=== PATIENT | female | born 2000 | race African-American/Black ===

== ENCOUNTER 2025-04-08 03:57 | Observation (INO) | payer MEDICAID ==
[~2025-04-08] VITALS: Ht 172.7 cm; Wt 59.0 kg
[2025-04-08] MEDS ORDERED: BETAMETHASONE ACET (30mg/5ml) 5ml Vial 6mg/ml IM ONE (04:30)
[2025-04-08] MEDS: TERBUTALINE SULFATE 1 MG/ML 1ML VIAL SC SCH (04:32)
[2025-04-08] MEDS: LACTATED RINGER'S 1,000 ML IV ONE (04:36)
[2025-04-08 05:02] LABS: Amphetamine Screen, Urine Neg (NEGATIVE); Barbiturate Scree,Urine Neg (NEGATIVE); Benzodiazephine Screen, Urine Neg (NEGATIVE); Cannabinoid Screen, Urine Neg (NEGATIVE); Cocaine Screen, Urine Neg (NEGATIVE); Opiate Scree,Urine Neg (NEGATIVE); Phencyclidine Screen, Urine Neg (NEGATIVE)
[2025-04-08 05:10] LABS: Urine Bacteria FEW /hpf (None Seen); Urine Blood Negative /uL (Negative); Urine Clarity Clear (Clear); Urine Color Colorless (Yellow); Urine Protein, UAD Negative (Negative); Urine Specific Gravity 1.007 (1.001-1.035); Urine Squamous Epithelial Cell FEW /hpf (<5); Urine Urobilinogen Normal (Negative); Urine WBC 8 /HPF (0-5)
[2025-04-08] MEDS ORDERED: PREN-96 PO (05:26)
--- NOTE | 2025-04-08 07:55 | DVHDS2 ---
Discharge Summary Date of Admission Date of Discharge: Apr 08, 2025 Admitting Diagnosis contractions Wounds: none Labs/Diagnostic Data: Laboratory Results Test 04/08/25 04:31 Urine Color Colorless (Yellow) Urine Clarity Clear (Clear) Urine pH 7.0 (5.0-9.0) Urine Specific [place] 1.007 (1.001-1.035) Urine Protein Negative (Negative) Urine Ketones Negative (Negative) Urine Blood Negative /uL (Negative) Urine Nitrite Negative (Negative) Urine Bilirubin Negative (Negative) Urine Urobilinogen Normal mg/dL (Negative) Urine Leukocyte Esterase Negative /uL (Negative) Urine RBC 7 /hpf (0 - 4) Urine Microscopic WBC 8 /HPF (0-5) Urine Squamous Epithelial Cells Few /hpf (<5) Urine Bacteria Few /hpf (None Seen) Urine Glucose Normal mg/dL (Normal) Urine Opiates Screen Neg (NEGATIVE) Urine Fentanyl Screen Neg (NEGATIVE) Urine Barbiturates Screen Neg (NEGATIVE) Urine Phencyclidine Screen Neg (NEGATIVE) Urine Amphetamines Screen Neg (NEGATIVE) Urine Benzodiazepines Screen Neg (NEGATIVE) Urine Cocaine Screen Neg (NEGATIVE) Urine Cannabinoids Screen Neg (NEGATIVE) Brief Hx & Hospital Course: 29 weeks contractions Dx uti contractions no labor Condition at Discharge: Good Final Diagnosis/Problems List UTI contractions Discharge Disposition: Home Discharge Instruct/Medications Diet: Regular Activity: Light activity (pelvic rest labor precautions , kick counts) Follow Up/Referral: Please keep all previously scheduled OB appointments & notify your primary OB about your visit today Medications: CONTINUE TAKING VITAMINS , Macrobid Discharge Statement: "Patient was advised to return to the ER or call 911 if any headaches, dizziness, shortness of breath, chest pain, abdominal pain, bleeding, fevers, or worsening of medical condition. Patient was counseled about treatment plan, medications, possible side effects, patientverbalized understanding. All questions were answered to the best of my ability. This discharge took greater then 30 minutes in planning, reviewing documentation, counseling the patient, and discussing with other team members." ASSESSMENT ASSESSMENT Assessment Visit Coding OBGYN Date of Service: Apr 08, 2025 Billing Provider: YUDITH SIMMONS DO PATTERN TECHNICIAN Common Visit Codes: 63256-ORV/OBS SAME DATE (LOW), 39326-NDF/OBS SAME DATE (MOD), 46516-BAA/OBS SAME DATE (HIGH) PATTERN TECHNICIAN Procedure Codes: 45047-87- NON-STRESS TEST YUDITH SIMMONS DO Apr 08, 2025 07:55
== END 2025-04-08 05:26 | disposition home or self-care (01) ==
LOC: UNDOADMOB 03:57 → UNDOADMIN 03:57 → LDRP 03:57
PROVIDERS: ADMIT Obstetrics & Gynecology; ATTEND Obstetrics & Gynecology
DX: O23.43 Unspecified infection of urinary tract in pregnancy, third trimester (principal); N39.0 Urinary tract infection, site not specified; O62.9 Abnormality of forces of labor, unspecified; Z3A.29 29 weeks gestation of pregnancy; Z79.899 Other long term (current) drug therapy; Z98.890 Other specified postprocedural states
CPT/HCPCS: 59025; 80307; 81001; 81002; 94760; 96360; 96361; 96372; G0378; J3105; J7120